=== PATIENT | male | born 1950 | race Caucasian/White ===

== ENCOUNTER 2021-05-31 15:46 | Outpatient (CLI) | payer MEDICARE, OTHER ==
[2021-05-31 16:24] LABS: ALBUMIN 4.3 g/dL (3.2-5.5); ALBUMIN/GLOBULIN RATIO 1.5 (1.0-2.2); BILIRUBIN,TOTAL 0.8 mg/dL (0.2-1.0); CALCIUM 8.7 mg/dL (8.5-10.3); CREATININE 0.7 mg/dL (0.6-1.2); POTASSIUM 3.6 mmol/L (3.5-5.0); TOTAL PROTEIN 7.2 g/dL (6.7-8.2)
== END 2021-05-31 15:47 | disposition home or self-care (01) ==
LOC: LAB 15:46
PROVIDERS: ATTEND Nurse Practitioner
DX: E78.2 Mixed hyperlipidemia (principal)
CPT/HCPCS: 36415; 80053

== ENCOUNTER 2023-02-25 09:47 | Emergency (ER) | payer MEDICARE, OTHER ==
[2023-02-25 10:05] VITALS: BP 158/83; O2SAT 97
--- NOTE | 2023-02-25 10:17 | ED Physician Documentation ---
PD [place] HEENT - Stated complaint Stated Complaint: SORE THROAT - Chief complaint Chief Complaint: Heent - History obtained from History obtained from: Patient - Additional information Additional information: Patient is a 72-year-old male with a history of heart failure presenting for evaluation of 3 days of a sore throat and runny nose for the past week. Patient denies fever. Denies a cough but reports occasionally having to clear his throat.No sinus pressure. No shortness of air. No chest pain. He reports the drainage from his nose is clear. He took a COVID test today. He has a dentist appointment coming up in a few days and has family coming to visit this weekend and was concerned about strep. Has not tried any medications yet for his symptoms. Review of Systems Constitutional: denies: Fever Nose: reports: Rhinorrhea / runny nose Throat: reports: Sore throat Cardiac: denies: Chest pain / pressure Respiratory: denies: Dyspnea GI: denies: Abdominal Pain, Vomiting Neurologic: denies: Headache PD PAST MEDICAL HISTORY - Past Medical History Past Medical History: Yes Cardiovascular: Congestive heart failure, Hypertension, High cholesterol, [place] Respiratory: None Neuro: None Endocrine/Autoimmune: Type 2 diabetes GI: None : None Psych: None Musculoskeletal: Osteoarthritis Derm: None - Past Surgical History Past Surgical History: Yes Ortho: Knee replacement Cardiovascular: Coronary stent, Cardiac catheterization - Present Medications Home Medications: Ambulatory Orders Medication Instructions Recorded Confirmed Aspirin EC [Ecotrin] 81 mg PO DAILY 02/25/23 02/25/23 Glimepiride [Amaryl] 8 mg PO 0800 02/25/23 02/25/23 Metformin HCl [Metformin ER 500 mg PO DAILY 02/25/23 02/25/23 Gastric] Rosuvastatin Calcium 20 mg PO DAILY 02/25/23 02/25/23 Spironolactone [Aldactone] 25 mg PO DAILY 02/25/23 02/25/23 Valsartan [Diovan] 80 mg PO BID 02/25/23 02/25/23 carvediloL [Coreg] 12.5 mg PO BID 02/25/23 02/25/23 - Allergies Allergies/Adverse Reactions: Allergies Allergy/AdvReac Type Severity Reaction Status Date / Time bee venom protein (honey bee) Allergy Anaphylaxis Verified 02/25/23 09:51 - Social History Does the pt smoke?: No Smoking Status: Former smoker Does the pt drink ETOH?: Yes ETOH Use: Liquor Does the pt have substance abuse?: No - Immunizations Immunizations are current?: Yes PD ED PE NORMAL - General General: Alert and oriented X 3, No acute distress, Well developed/nourished - HEENT HEENT: Atraumatic, Ears normal, Moist mucous membranes, Pharynx benign (No oral swelling, erythema or exudate. Normal Phonation.) - Neck Neck: Supple, no meningeal sign, No bony TTP - Cardiac Cardiac: RRR, No murmur - Respiratory Respiratory: No respiratory distress, Clear bilaterally - Abdomen Abdomen: Soft, Non tender - Derm Derm: Warm and dry - Neuro Neuro: Normal speech Results - Vitals Vitals: Vital Signs - 24 hr 02/25/23 09:51 Temperature 36.2 C L Heart Rate 66 Respiratory 18 Rate Blood Pressure 158/83 H O2 Saturation 97 Oxygen O2 Source Room air - Labs Labs: Laboratory Tests 02/25/23 02/25/23 10:05 10:05 Nasal Adenovirus (PCR) NOT DETECTED Nasal B. parapertussis DNA (PCR) NOT DETECTED Nasal Coronavir 229E PCR NOT DETECTED Nasal Coronavir HKU1 PCR NOT DETECTED Nasal Coronavir NL63 PCR NOT DETECTED Nasal Coronavir OC43 PCR NOT DETECTED Nasal Enterovir/Rhinovir PCR NOT DETECTED Nasal Influenza B PCR NOT DETECTED Nasal Influenza A PCR NOT DETECTED Nasal Parainfluen 1 PCR NOT DETECTED Nasal Parainfluen 2 PCR NOT DETECTED Nasal Parainfluen 3 PCR NOT DETECTED Nasal Parainfluen 4 PCR NOT DETECTED Nasal RSV (PCR) NOT DETECTED Nasal B.pertussis DNA PCR NOT DETECTED Nasal C.pneumoniae (PCR) NOT DETECTED [place] Human Metapneumo PCR NOT DETECTED Nasal M.pneumoniae (PCR) NOT DETECTED Nasal SARS-CoV-2 (PCR) NOT DETECTED Group A Strep Rapid Negative PD Medical Decision Making - ED course Complexity details: reviewed results, re-evaluated patient, d/w patient ED course: Patient with URI symptoms for few days. Denies cough or feeling short of air. Lung sounds are clear. Patient reports sore throat for few days so strep swab was obtained which is negative. Respiratory swab is pending. Symptoms are likely related to a viral illness.Vital signs appear stable. Discussed continued supportive care as well as concerning symptoms to return for. Departure - Departure Disposition: 01 Home, Self Care Clinical Impression: Viral pharyngitis Condition: Stable Instructions: ED Pharyngitis Viral Comments: Your respiratory panel is pending. This will check for COVID, influenza, RSV and a number of other common cold viruses. We will notify you if it is positive for COVID. Otherwise you can check the patient portal for your results. You should quarantine from others until you know your COVID result. Please continue with acetaminophen or ibuprofen as needed for fevers and body aches, plenty of fluids/hydration and rest. Return to the ER with any worsening symptoms such as difficulty breathing or vomiting. Your strep test is negative. Forms: PCP List Discharge Date/Time: 02/25/23 11:01
[2023-02-25 10:37] LABS: RAPID STREP SCREEN Negative (Negative)
[2023-02-25 11:19] LABS: B. PARAPERTUSSIS- RESP PCR PAN NOT DETECTED; B. PERTUSSIS- RESP PCR PANEL NOT DETECTED; C. PNEUMONIAE- RESP PCR PANEL NOT DETECTED; CORONAVIRUS 229E-RESP PCR NOT DETECTED; CORONAVIRUS HKU1-RESP PCR NOT DETECTED; CORONAVIRUS NL63-RESP PCR NOT DETECTED; CORONAVIRUS OC43-RESP PCR NOT DETECTED; HUMAN METAPNEUMOVIRUS NOT DETECTED; INFLUENZA A- RESP PCR PANEL NOT DETECTED; INFLUENZA B - RESP PCR PANEL NOT DETECTED; M. PNEUMONIAE- RESP PCR PANEL NOT DETECTED; PARAINFLUENZA VIRUS 1 NOT DETECTED; PARAINFLUENZA VIRUS 2 NOT DETECTED; PARAINFLUENZA VIRUS 3 NOT DETECTED; PARAINFLUENZA VIRUS 4 NOT DETECTED; RHINOVIRUS/ENTEROVIRUS NOT DETECTED; RSV- RESP PCR PANEL NOT DETECTED; SARS-CoV-2 -RESP PCR PANEL NOT DETECTED
== END 2023-02-25 11:01 | disposition home or self-care (01) ==
LOC: ED 09:47
DX: J02.8 Acute pharyngitis due to other specified organisms (principal); Z87.891 Personal history of nicotine dependence; Z20.822 Contact with and (suspected) exposure to COVID-19
CPT/HCPCS: 87070; 87430; 87633; 99283

== ENCOUNTER 2023-09-04 08:11 | Emergency (ER) | payer MEDICARE, OTHER ==
[2023-09-04] MEDS: LIDOCAINE-EPINEPH-TETRACAINE 3 ML SYRINGE TOP STA (08:54)
--- NOTE | 2023-09-04 09:11 | ED Physician Documentation ---
PD HPI LOWER EXT INJURY - Stated complaint Stated Complaint: LT ANKLE CYST - Chief complaint Chief Complaint: Wound - History obtained from History obtained from: Patient - Additional information Additional information: Patient is a 73-year-old male presenting for evaluation of redness and swelling to the left ankle. Patient reports he has had a cyst there for some time which has been recently worsening over the past month. He has an upcoming appointment with administrative liaison, Dr. Mckinney, on September 10 but states that over the past few days it has become more red and swollen and he was concerned it was infected. He is diabetic. Does not take a blood thinner. Denies fever. Denies other trauma. Does report a history of a cyst on his back that required drainage last year. Review of Systems Constitutional: denies: Fever Cardiac: denies: Chest pain / pressure Respiratory: denies: Dyspnea GI: denies: Abdominal Pain Musculoskeletal: reports: Extremity pain PD PAST MEDICAL HISTORY - Past Medical History Past Medical History: Yes Cardiovascular: Congestive heart failure, Hypertension, High cholesterol, [place] Respiratory: None Neuro: None Endocrine/Autoimmune: Type 2 diabetes GI: None : None Psych: None Musculoskeletal: Osteoarthritis Derm: None - Past Surgical History Past Surgical History: Yes Ortho: Knee replacement Cardiovascular: Coronary stent, Cardiac catheterization - Present Medications Home Medications: Ambulatory Orders Medication Instructions Recorded Confirmed Aspirin EC [Ecotrin] 81 mg PO DAILY 02/25/23 09/04/23 Glimepiride [Amaryl] 8 mg PO 0800 02/25/23 09/04/23 Metformin HCl [Metformin ER 2,000 mg PO DAILY 02/25/23 09/04/23 Gastric] Rosuvastatin Calcium 20 mg PO DAILY 02/25/23 09/04/23 Spironolactone [Aldactone] 25 mg PO DAILY 02/25/23 09/04/23 Valsartan [Diovan] 80 mg PO BID 02/25/23 09/04/23 carvediloL [Coreg] 12.5 mg PO BID 02/25/23 09/04/23 Dapagliflozin Propanediol [Farxiga] 10 mg PO DAILY 09/04/23 09/04/23 Sulfamethox/Trimeth 800/160 1 each PO BID #14 tablet 09/04/23 [Bactrim Ds 800/160] cephALEXin [Keflex] 500 mg PO Q6H #28 cap 09/04/23 - Allergies Allergies/Adverse Reactions: Allergies Allergy/AdvReac Type Severity Reaction Status Date / Time bee venom protein (honey bee) Allergy Anaphylaxis Verified 09/04/23 08:20 - Social History Does the pt smoke?: No Smoking Status: Never smoker Does the pt drink ETOH?: Yes Does the pt have substance abuse?: No - Immunizations Immunizations are current?: Yes PD ED PE NORMAL - General General: Alert and oriented X 3, No acute distress, Well developed/nourished - HEENT HEENT: Atraumatic, Moist mucous membranes, Pharynx benign - Neck Neck: Supple, no meningeal sign - Cardiac Cardiac: RRR, Strong equal pulses - Respiratory Respiratory: No respiratory distress, Clear bilaterally - Extremities Extremities: Other (2 cm area of swelling and fluctuance to medial left ankle just distal to the malleoli with overlying erythema and a small area of dried drainage; Compartments of foot are soft, no crepitus) - Neuro Neuro: Alert and oriented X 3, No motor deficit, No sensory deficit, Normal speech Results - Vitals Vitals: Vital Signs - 24 hr 09/04/23 09/04/23 08:16 10:25 Temperature 36 C L Heart Rate 68 65 Respiratory 15 15 Rate Blood Pressure 145/74 H 144/74 H O2 Saturation 96 98 Oxygen O2 Source Room air - Labs Labs: Microbiology 09/04/23 09:35 Wound Culture - Preliminary Ankle - Left Procedures - Abscess I&D (location) L ankle Preparation: Lidocaine 1%, LET, Other (Hibiclens) Incision: Incised with scalpel, Culture obtained, Other (Sebaceous and bloody drainage) Other: Pt tolerated well, Dressing applied, Antibiotic prescribed PD Medical Decision Making - ED course ED course: Patient presenting for evaluation of swelling and redness to the left ankle. Has a known cyst which at this time appears to be infected. Wound was appropriately prepped and area was incised with bloody and sebaceous drainage. Culture was obtained. Patient will be placed on antibiotics. No signs of necrotizing infection. Has an appointment with podiatry next week and was counseled on need for close follow-up as well as concerning symptoms to return for. Departure - Departure Disposition: 01 Home, Self Care Clinical Impression: Infected cyst of skin, Cellulitis of left ankle Condition: Stable Instructions: ED Abscess IandD, ED Infec Skin Cellulitis Follow-Up: Florinda Boyle DPM [Provider Admit Priv/Credential] - Prescriptions: Sulfamethox/Trimeth 800/160 [Bactrim Ds 800/160] 1 each PO BID #14 tablet cephALEXin [Keflex] 500 mg PO Q6H #28 cap Comments: You have a cyst to your left ankle that appears of gotten infected. I have ope susana and drained this area. We have sent a culture. I am starting you on 2 antibiotics given the overlying skin infection and have sent these prescriptions to in [place]. I would recommend still having follow-up with the administrative liaison to ensure that the wound is healing and that you do not need any further drainage or excision. Return to the ER with any worsening symptoms such as fevers, increased swelling or pain. Forms: PCP List Discharge Date/Time: 09/04/23 10:26
[2023-09-04 10:31] VITALS: BP 144/74; O2SAT 98
== END 2023-09-04 10:26 | disposition home or self-care (01) ==
LOC: ED 08:11
DX: L03.116 Cellulitis of left lower limb (principal); L72.8 Other follicular cysts of the skin and subcutaneous tissue; I10 Essential (primary) hypertension; E11.9 Type 2 diabetes mellitus without complications; Z79.84 Long term (current) use of oral hypoglycemic drugs
CPT/HCPCS: 10060; 87070; 87181; 87205

== ENCOUNTER 2023-09-11 10:34 | Outpatient (CLI) | payer MEDICARE ==
--- NOTE | 2023-09-11 17:06 | XRAY Report ---
PROCEDURE: Ankle 3+V LT INDICATIONS: LEFT ANKLE PAIN,ABSCESS TECHNIQUE: 3 views of the ankle were acquired. COMPARISON: None. FINDINGS: Bones: The calcaneal pitch is 8.5 degrees. Severe degenerative changes are present at the mortise maurizio int and the midfoot. Including joint space narrowing and osteophytosis. 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 Soft tissues: No tibiotalar joint effusion. Achilles tendon appears normal. IMPRESSION: Severe degenerative changes and pes planus. Reviewed by: Josefina Johnston MD on 09/11/2023 5:05 PM PDT Approved by: Josefina Johnston MD on 09/11/2023 5:05 PM PDT Station ID: [id number]
== END 2023-09-11 10:35 | disposition home or self-care (01) ==
LOC: DI 10:34
PROVIDERS: ATTEND Podiatrist
DX: L02.416 Cutaneous abscess of left lower limb (principal); M19.072 Primary osteoarthritis, left ankle and foot; M21.42 Flat foot [pes planus] (acquired), left foot

== ENCOUNTER 2023-09-22 08:00 | Outpatient (CLI) | payer MEDICARE | END 2023-09-22 23:59 | disposition home or self-care (01) | LOC: LAB.R 08:00 | PROVIDERS: ATTEND Podiatrist | DX: L02.612 Cutaneous abscess of left foot (principal) | CPT/HCPCS: 87070; 87205 ==

== ENCOUNTER 2023-10-03 08:00 | Outpatient (CLI) | payer MEDICARE | END 2023-10-03 23:59 | disposition home or self-care (01) | LOC: LAB.R 08:00 | PROVIDERS: ATTEND Podiatrist | DX: L02.612 Cutaneous abscess of left foot (principal) | CPT/HCPCS: 87070; 87077; 87181; 87205 ==

== ENCOUNTER 2023-10-20 10:14 | Outpatient (CLI) | payer MEDICARE | END 2023-10-20 10:15 | disposition home or self-care (01) | LOC: LAB.R 10:14 | PROVIDERS: ATTEND Podiatrist | DX: L02.612 Cutaneous abscess of left foot (principal) | CPT/HCPCS: 87070; 87205 ==

== ENCOUNTER 2024-03-24 13:36 | Emergency (ER) | payer MEDICARE, OTHER ==
--- NOTE | 2024-03-24 13:45 | ED Physician Documentation ---
History of Present Illness - Stated complaint Stated Complaint: LT FINGER INJ - History obtained from History obtained from: Patient - Additonal information Additional information: This is a right-handed gentleman who was cutting some bolts with bolt cutters at home and cut his left ring finger just prior to arrival. Last tetanus shot August 2013. PD PAST MEDICAL HISTORY - Past Medical History Cardiovascular: Congestive heart failure, Hypertension, High cholesterol, [place] Respiratory: None Neuro: None Endocrine/Autoimmune: Type 2 diabetes GI: None : None Psych: None Musculoskeletal: Osteoarthritis Derm: None - Past Surgical History Past Surgical History: Yes Ortho: Knee replacement Cardiovascular: Coronary stent, Cardiac catheterization - Present Medications Home Medications: Ambulatory Orders Medication Instructions Recorded Confirmed Aspirin EC [Ecotrin] 81 mg PO DAILY 02/25/23 11/05/23 Glimepiride [Amaryl] 4 mg PO 0800 02/25/23 11/05/23 Metformin HCl [Metformin ER 2,000 mg PO DAILY 02/25/23 11/05/23 Gastric] Rosuvastatin Calcium 20 mg PO DAILY 02/25/23 11/05/23 Spironolactone [Aldactone] 25 mg PO DAILY 02/25/23 11/05/23 Valsartan [Diovan] 80 mg PO BID 02/25/23 11/05/23 carvediloL [Coreg] 25 mg PO BID 02/25/23 11/05/23 Dapagliflozin Propanediol [Farxiga] 10 mg PO DAILY 09/04/23 11/05/23 Loratadine [Claritin] 10 mg DAILY 11/05/23 11/05/23 - Allergies Allergies/Adverse Reactions: Allergies Allergy/AdvReac Type Severity Reaction Status Date / Time bee venom protein (honey bee) Allergy Anaphylaxis Verified 03/24/24 13:43 - Social History Does the pt smoke?: No Smoking Status: Never smoker Does the pt drink ETOH?: Yes Does the pt have substance abuse?: No - Immunizations Immunizations are current?: Yes PD ED PE NORMAL - Vitals Vital signs reviewed: Yes - General General: Alert and oriented X 3, No acute distress - Extremities Extremities: Other (There is a interrupted almost circumferential lack on the pulp of the left ring finger without distal neurovascular compromise.) - Neuro Neuro: Alert and oriented X 3 Results - Vitals Vitals: Vital Signs - 24 hr 09/25/24 13:43 Temperature 36.5 C Heart Rate 65 Respiratory 18 Rate Blood Pressure 171/87 H O2 Saturation 98 Oxygen O2 Source Room air Procedures - Laceration (location) L 4th finger Length in cm: 2 Wound type: Curved Neurovascular status: Sensory intact, Motor intact Anesthesia: Lidocaine 1% (digital block) Wound preparation: Irrigated copiously NS Skin layer closure: Nylon, Interrupted, Size #-0 - enter number (4-0), Sutures - enter # (4) Other: Tetanus booster given Departure - Departure Disposition: 01 Home, Self Care Clinical Impression: Finger laceration Condition: Good Record reviewed to determine appropriate education?: Yes Instructions: ED Laceration Hand Comments: Come back for any signs of infection which would include: Redness, swelling, drainage, increased pain, or fevers. You can wash it soap and water. Keep it covered and moist with bacitracin ointment which is available over the counter; avoid neosporin. Follow-up with your physician in about 14 days for suture removal.
[2024-03-24] MEDS: TETANUS/DIPHTHERIA/PERTUSSIS 0.5 ML SYRINGE IM ONE (13:50)
[2024-03-24 13:51] VITALS: BP 171/87; O2SAT 98
[2024-03-24] MEDS: lidocaine 1% 20 ML MDV SUBQ ONE (13:51)
[2024-03-24] MEDS: BACITRACIN ZINC OINT 1 PACKET TOP STA (14:15)
== END 2024-03-24 14:16 | disposition home or self-care (01) ==
LOC: ED 13:36
DX: S61.215A Laceration without foreign body of left ring finger without damage to nail, initial encounter (principal); W27.8XXA Contact with other nonpowered hand tool, initial encounter
CPT/HCPCS: 12001; 90471; 90715; 99283; A9270